=== PATIENT | female | born 1980 | race Caucasian/White ===

== ENCOUNTER 2024-08-18 07:48 | Emergency (ER) | payer OTHER ==
[2024-08-18 08:02] VITALS: BP 167/89; PULSE 89; RESP 18; TEMP 98.4; BMI 33.6
[2024-08-18] MEDS ORDERED: KETOROLAC TROMETHAMINE 30 MG/1 ML VIAL ONE (08:55)
[2024-08-18] MEDS: KETOROLAC TROMETHAMINE 30 MG/1 ML VIAL IM ONE (09:03)
== END 2024-08-18 10:15 | disposition home or self-care (01) ==
LOC: JER 07:48 → JERFT 07:48
PROC: 3E0233Z Introduction of Anti-inflammatory into Muscle, Percutaneous Approach (ICD-10-PCS; principal; 2024-08-18)
DX: S52.124A Nondisplaced fracture of head of right radius, initial encounter for closed fracture (principal); W01.0XXA Fall on same level from slipping, tripping and stumbling without subsequent striking against object, initial encounter
CPT/HCPCS: 73060-TC-RT-FY; 73070-TC-RT-FY; 73090-TC-RT-FY; 99284-25

== ENCOUNTER 2025-03-09 23:16 | Emergency (ER) | payer OTHER ==
[2025-03-09 23:27] VITALS: BP 151/94; PULSE 107; RESP 18; TEMP 97.8; BMI 34.5
== END 2025-03-10 00:36 | disposition home or self-care (01) ==
LOC: JER 23:16
PROC: 3E033GC Introduction of Other Therapeutic Substance into Peripheral Vein, Percutaneous Approach (ICD-10-PCS; principal; 2025-03-10)
DX: L50.9 Urticaria, unspecified (principal)
CPT/HCPCS: 99284-25